=== PATIENT | male | born 1930 | race Caucasian/White ===

== ENCOUNTER → 2016-07-28 | Outpatient (CLI) | payer MEDICARE, OTHER | LOC: OD 07:45 | PROVIDERS: ATTEND Urology | DX: N40.1 Benign prostatic hyperplasia with lower urinary tract symptoms (principal) | CPT/HCPCS: 36415; 84153 ==

== ENCOUNTER → 2017-01-04 | Outpatient (CLI) | payer MEDICARE, OTHER ==
--- NOTE | 2017-01-04 16:30 | RADIOLOGY REPORT (SQ) ---
EXAM DESCRIPTION: CAROTID DOPPLER COMPLETED DATE/TIME: 01/04/2017 1:47 pm REASON FOR STUDY: DIZZINESS R42 DIZZINESS AND GIDDINESS COMPARISON: None. TECHNIQUE: Grayscale ultrasound, Doppler velocity and spectra, and color Doppler images acquired of the extra-cranial carotid and vertebral arteries. Images stored on PACS. LIMITATIONS: None. FINDINGS: RIGHT CAROTID CCA Velocities: Within normal limits. ICA Velocities Peak systolic 1.72 m/s. End diastolic 0.43 m/s. Proximal ICA/CCA peak systolic ratio 1.4. Heterogeneous plaque in the bulb and proximal ICA. LEFT CAROTID CCA Velocities: Within normal limits. ICA Velocities Peak systolic 0.9 a m/s. End diastolic 0.16 m/s. Proximal ICA/CCA peak systolic ratio 1.1. Heterogeneous plaque in the bulb and proximal ICA. VERTEBRAL ARTERIES: Antegrade flow. Normal waveforms. SUBCLAVIAN ARTERIES: Not imaged. OTHER: No other significant finding. 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 Left: Less than 50% stenosis of the ICA. COMMENT: Quality ID #[id number]: Velocity criteria are extrapolated from the diameter data as defined by t he Society of Radiologists in Ultrasound Consensus Conference. Radiology 2003: 229; 340-346. TECHNICAL DOCUMENTATION: JOB ID: [id number] [email or web address] All Rights Reserved
== END ==
LOC: SP 12:46
PROVIDERS: ATTEND Internal Medicine
DX: R42 Dizziness and giddiness (principal)
CPT/HCPCS: 93880